=== PATIENT | male | born 1970 | race Caucasian/White ===

== ENCOUNTER 2024-08-21 09:47 | Day surgery (SDC) | payer BC ==
[~2024-08-21 09:47] MED LIST: Acetaminophen 1,000 MG in Premix Bag 1 BAG IV SCH; Albuterol 0.083% 2.5 MG/3 ML Neb Soln NEB PRN; Metoclopramide 10 MG/2 ML SDV IVPUSH PRN; Morphine 2 MG/ML SYRINGE IVPUSH PRN; Naloxone 0.4 MG/ML SDV IVPUSH PRN; Ondansetron 4 MG/2 ML SDV IVPUSH PRN; Phenylephrine HCl In 0.9% NaCl 1 MG/10 ML Syringe IVPUSH PRN; ceFAZolin 2 GM in Sodium Chloride 0.9% 50 ML IV ONE; fentaNYL 50 MCG/ML SDV IVPUSH PRN
[2024-08-21] MEDS: Pregabalin 75 MG Cap PO SCH (10:33)
[2024-08-21] MEDS: Lactated Ringers 1,000 ML IV SCH (10:33)
[2024-08-21] MEDS ORDERED: dexmedeTOMIDine HCl 200 MCG/2 ML SDV ONE (10:50)
[2024-08-21] MEDS ORDERED: fentaNYL 100 MCG/2 ML SDV ONE ×2 (10:50→13:37)
[2024-08-21] MEDS ORDERED: Propofol 200 MG/20 ML SDV ONE (10:50)
[2024-08-21] MEDS ORDERED: Rocuronium Bromide 50 MG/5 ML Syringe ONE ×3 (10:51→12:29)
[2024-08-21] MEDS ORDERED: Bupivacaine 0.25% 30 ML SDV ONE (10:53)
[2024-08-21] MEDS ORDERED: Bupivacaine 0.5% 30 ML SDV ONE (10:56)
[2024-08-21] MEDS ORDERED: Ondansetron 4 MG/2 ML SDV ONE (11:20)
[2024-08-21] MEDS ORDERED: Dexamethasone 4 MG/ML 5 ML MDV ONE (11:20)
[2024-08-21] MEDS ORDERED: ceFAZolin 2 GM Vial ONE (11:20)
[2024-08-21] MEDS ORDERED: Sugammadex Sodium 200 MG/2 ML VIAL IV ONE (12:51)
[2024-08-21] MEDS ORDERED: Ketorolac 30 MG/ML SDV ONE (12:51)
[2024-08-21] MEDS: HYDROmorphone 1 MG/ML Syringe IVPUSH PRN (14:11)
== END 2024-08-21 15:35 | disposition home or self-care (01) ==
LOC: MW.SDS 09:47
PROVIDERS: ATTEND Surgery
DX: K43.2 Incisional hernia without obstruction or gangrene (principal); K40.20 Bilateral inguinal hernia, without obstruction or gangrene, not specified as recurrent; M62.08 Separation of muscle (nontraumatic), other site
CPT/HCPCS: 49595; 64488; A9270; J0131; J0665; J0690; J1100; J1171; J1885; J2405; J2704; J3010; J3490; J7120; 00752; C1781